=== PATIENT | male | born 1945 | race Caucasian/White ===

== ENCOUNTER 2019-04-10 07:09 | Day surgery (SDC) | payer OTHER, MEDICARE ==
[~2019-04-10] VITALS: Ht 165.1 cm; Wt 85.3 kg
--- NOTE | ~2019-04-10 | O ---
[facility] [place] [address] OPERATIVE REPORT Name: QUINTIN HUDSON Room #: 150-7 [facility]..#: [id number] Admission: 04/10/19 Attend Phys: Quintin Stevenson MD Discharge: Date of : 47 Report #: [id number] THIS REPORT FOR: cc: Maame Arita,Quintin Davidson MD ~ CC: Dr. 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 PROCEDURE: Excision of lesion of right lower lid with frozen section, control of margins and myocutaneous flap repair of defect. SURGEON: Quintin Stevenson MD. SAFE [employer]ICE MECHANIC: None. ANESTHESIA: MAC. COMPLICATIONS: None. INDICATIONS FOR SURGERY: This pleasant 73-year-old gentleman has a lesion in his right lower lid and cheek that has been previously biopsied and determined to be either a squamous cell carcinoma or a keratoacanthoma. It has been incompletely excised. He presents today for excision of the residual lesion with subsequent repair of that defect after frozen sections confirmed that the lesion has been completely extirpated. Informed consent was obtained to include but not limited to the potential risk for loss of vision, bleeding, infection, failure to improve the problem, the potential need for further surgery or treatment. DESCRIPTION OF PROCEDURE: The patient was taken to the operating room where 2% Xylocaine with epinephrine mixed with equal parts 0.75% Marcaine with Wydase was administered transcutaneously to the right lower lid, the right cheek, the right lateral canthus and the right infratemporal fossa. The patient was subsequently prepped and draped in the usual sterile fashion. A fine tip skin marking pen was then utilized to outline the lesion including 1-2 mm of normal appearing tissue. The incisions were then made with a Hugh scissor and the dissection carried out into the facial musculature to ensure that the deep margin would be [address] [address] OPERATIVE REPORT Name: QUINTIN HUDSON Room #: 150-7 [facility].#: [id number] Admission: 04/10/19 Attend Phys: Quintin Stevenson MD Discharge: Date of : 47 Report #: [id number] adequate. Hemostasis was achieved with diligent pinpoint monopolar cautery. The specimen was then oriented on a drawing for the waiting pathologist. She snap froze the tissue and found that the margins were clear. She was still interested the exact pathology present. A myocutaneous flap was then developed laterally and rotated into a more medial-sweeney position. Hemostasis was then re-achieved. The flap was then advanced and secured with multiple interrupted 6-0 plain gut sutures. The wound was then cleaned and dressed with erythromycin ointment. The patient subsequently transported to the recovery area having tolerated the procedure well with no anesthetic or operative complications being noted. By: [id number] Quintin Stevenson MD /nt
[~2019-04-10 07:09] MED LIST: ASA81BEC PO; CLARITIN10 M3 PO; COQ-1030 MG PO; FLONASE 0.05%50 MCG NARES; LEVOXYL100 MCG PO; METOPROLOL TART25 MG PO; NEXIUM 24HR20 M2 PO; SIMVASTATIN40 MG PO; SUPER THERAVIT1 EACH PO; VITAMIN C500 M1 PO
[2019-04-10 09:09] VITALS: BP 139/74
--- NOTE | 2019-04-11 17:07 | PATH ---
[facility] [place] [address] PATHOLOGY RPT PROCEDURE Name: QUINTIN HUDSON Room #: DEP [facility]#: [id number] Admission: 04/10/19 Date of : 47 Discharge: 04/10/19 Report #: [id number] Path Case #: [id number] [facility] Accession Number: [id number] . 01 Material submitted: . lid - RIGHT LOWER LID LESION,FS. Modifiers: right, lower . 02 Frozen section diagnosis: . FROZEN SECTION DIAGNOSIS (Dr. Trista Cid) . FSA1. Skin, right lower lid lesion, excision: - Scar present. - Negative for invasive carcinoma at margins on FS slides. . These findings are discussed with Dr. Quintin Stevenson in OR-6 at [facility] and a written report is placed in the patient's chart. . GROSS DESCRIPTION Specimen is received fresh from the OR labeled with the patient's name, "right lower lid lesion", consists of an oriented ellipse of skin measuring 1.3 cm approximately. It is oriented as lateral, superior, medial and inferior by Dr. Stevenson. The specimen is assigned 12:00, 3:00, 6:00 and 9:00 respectively at these margins. The 12:00 to 3:00 to 6:00 is inked black, the 6:00 to 9:00 is inked blue, and 9:00 to 12:00 is inked green. The 12:00 tip is additionally tagged with orange ink. At this point, the specimen is serially sectioned and entirely submitted for frozen section as FSA1. This is subsequently submitted for permanent sections as A1. (IUV:physician president; 04/10/2019) . Frozen section performed at [facility], [address] [place] [address] , [place] [address]. IZV/MBR . 02 Diagnosis: Skin, right lower lid lesion, excision: - Actinic keratosis. - Previous biopsy site changes present within dermis. - Negative for malignancy. - Margins of resection unremarkable. (IUV:[facility] 04/11/2019) QTP 04/11/2019 1232 Local . 02 Electronically signed: . Trista Cid MD, Pathologist NPI- [id number] [address] [id number] PATHOLOGY RPT PROCEDURE Name: QUINTIN HUDSON Room #: DEP [facility] Leatha#: [id number] Admission: 04/10/19 Date of : 47 Discharge: 04/10/19 Report #: [id number] Path Case #: [id number] . 03 Gross description: . PLEASE SEE GROSS DESCRIPTION DICTATED UNDER FROZEN SECTION. /MBR 04/10/2019 1646 Local . 02 Pathologist provided ICD-10: L57.0 . 02 CPT . 584284, [id number] Specimen Comment: A courtesy copy of this report has been sent to [phone], [phone] Specimen Comment: [phone] Specimen Comment: Report sent to / DR MARSHALL Performed at: [address] [facility], [place], [place] [id number] MD Eduar Bruner MD Phone: [phone] Performed at: [address] [id number] MD Trista Cid MD Phone: [phone] Performed at: [address], [place], [place] [id number] MD Eduar Bruner MD Phone: [phone]
== END 2019-04-10 10:45 | disposition home or self-care (01) ==
LOC: OR 07:09 → TBA 07:10 → OR 07:36
DX: L57.0 Actinic keratosis (principal); E78.00 Pure hypercholesterolemia, unspecified; G47.30 Sleep apnea, unspecified; K21.9 Gastro-esophageal reflux disease without esophagitis; Z98.890 Other specified postprocedural states; Z79.899 Other long term (current) drug therapy; Z85.828 Personal history of other malignant neoplasm of skin; Z85.46 Personal history of malignant neoplasm of prostate; Z87.891 Personal history of nicotine dependence; Z90.49 Acquired absence of other specified parts of digestive tract; Z88.8 Allergy status to other drugs, medicaments and biological substances; Z91.041 Radiographic dye allergy status; Z79.82 Long term (current) use of aspirin
CPT/HCPCS: 50010; 50101; 50386; 50398; 51636; 56531; 70005